=== PATIENT | female | born 1955 | race Caucasian/White ===

== ENCOUNTER 2020-05-27 07:28 | Day surgery (SDC) | payer OTHER ==
--- NOTE | 2020-05-24 10:17 | EKG ---
Test Date: 2020-05-24 Test Time: 10:08:57 [employer] Systems Foreman: CHRISTINA MEASUREMENT RESULTS: Intervals: Rate: 60 WV: 132 QRSD: 76 QT: 428 QTc: 428 Spray: P: 35 WV: 132 QRS: 56 T: 76 INTERPRETIVE STATEMENTS: Normal sinus rhythm Normal ECG Compared to ECG 05/17/2015 09:05:43 No significant changes Electronically Signed On 05-24-20 10:16:24 OPERATIONS MGR by Isaak Soria
--- NOTE | 2020-05-24 10:21 | RAD REPORT ---
EXAM DESCRIPTION: Jalen Medellin (2 Views)05/24/2020 10:07 am CLINICAL HISTORY: Preop for colonoscopy COMPARISON: 2014 FINDINGS: The lungs appear clear of acute infiltrate. The heart is normal size IMPRESSION: No acute abnormalities displayed
[2020-05-24 11:28] LABS: Absolute Lymphocytes (CBC) 0.8 K/uL (0.7-4.9); Basophils % 0.5 % (0-1.3); Hematocrit 39.2 % (36.0-45.0); MPV 9.9 fL (7.6-11.3); RBC Red Blood Cell Count 4.62 M/uL (3.86-4.86)
[2020-05-24 11:37] LABS: Potassium 3.6 mmol/L (3.5-5.1)
--- OUTSIDE RECORDS SUMMARY | 2020-05-27 07:32 | XMS REPORT | Continuity of Care Document ---
:1955 Author Organization [employer] Care Team Providers Name Role Phone [employer] Unavailable Un available Problems Problem Status Onset Classification Date Comments Sourc e Date Reported Encounter for 11/17/2018 OP ID screening mammogram 018 [place] for malignant neoplasm of breast Z12.31 - ENCNTR SCREEN Active OPID MAMMOGRAM FOR [place] 015 [place] Carpal tunnel syndrome Active Problem 06/28/2019 Data Mischer (disorder) 014 migrated Neuro,MH from [facility] on 11/20/14. Eczema (disorder) Active Problem 06/28/2019 Data M ischer 014 migrated Neuro,MH from [facility] on 11/20/14. NEED FOR PROPHYLACTIC Active Condition 05/24/2014 MH VACCINATION AND 014 Medi nataliia INOCULATION AGAINST Group INFLUENZA ECZEMA Active Condition 05/24/2014 MH 014 Medical Group CARPAL TUNNEL SYNDROME Active Condition 05/24/2014 MH 014 Medical Group Migraine (disorder) Active Problem 06/28/2019 Data Mischer 014 migrated Neuro,MH from [facility] on 11/20/14. MIGRAINE HEADACHE Active Condition 05/24/2014 M H 014 Medical Group Depressive disorder Active Problem 06/28/2019 Data Mischer (disorder) 013 [facility]14. Hyperlipidemia Active Problem 06/28/2019 Data Misc her (disorder) 013 migrated Neuro[facility] on 11/20/14. Monoclonal gammopathy Active Problem 06/28/2019 Data Mischer (disorder) 013 migrated Neuro,MH from [facility] on 11/20/14. Obesity (disorder) Active Problem 06/28/2019 Data Mischer 013 migrated Neuro, from [facility] on 11/20/14. MONOCLONAL GAMMOPATHY Active Condition 05/24/2014 013 Medical Group OBESITY Active Condition 05/24/2014 013 Medical Group DEPRESSION Active Condition 05/24/2014 013 Medical Group ELEVATED BLOOD Inactive Condition 05/24/2014 PRESSURE 013 Medical Group HYPERLIPIDEMIA Active Condition 05/24/2014 013 Medical Group 238.3 - [facility] CHEPE Active OPID B 012 [place] Allergic rhinitis Active Problem 06/28/2019 Data M ischer (disorder) migrated Neuro, from [facility] on 11/20/14. Asthma (disorder) Active Problem 06/28/2019 Data M ischer migrated Neuro, from [facility] on 11/20/14. Hypothyroidism Active Problem 06/28/2019 Data Misc her (disorder) [facility] on 11/20/14. Cervico-occipital Active Problem 06/28/2019 M ischer neuralgia (finding) Neuro,[facility] [address] Disease of thyroid Resolved Problem 06/28/2019 Mischer gland (disorder) [facility] Resolved Problem 06/28/2019 Mischer Neuro,[facility] [address] Hypercholesterolemia Resolved Problem 06/28/2019 Mischer (disorder) Neuro,[facility] [address] HYPOTHYROIDISM Active Condition 05/24/2014 Medical Group ALLERGIC RHINITIS Active Condition 05/24/2014 M H Medical Group ASTHMA Active Condition 05/24/2014 Medical Group Medications Medication Details Route Status Patient Ordering Order Source Instructions Provider Date Acetaminophen 1 tab, PO, Active Mischer 300 MG / Q4H, 0 018 Neuro butalbital 50 MG Refill(s) Oral Tablet Levothyroxine 88 microgram Active Misch er Sodium 0.088 MG = 1 tab, PO, 018 Khalida ro Oral Tablet Daily, 0 [Synthroid] Refill(s) rosuvastatin 20 20 mg = 1 Active Mische r mg oral tablet tab, PO, 018 Neuro Bedtime, 0 Refill(s) PHENTERMINE HCL Take 1/2 - 1 Active MH 37.5 MG CAPS capsule by 014 Medical mouth in the Group morning PRAVASTATIN 1 pill daily Active MH SODIUM 40 MG 014 Medical TABS Group PHENTERMINE HCL 1/2 - 1 Active MH 37.5 MG TABS tablet daily 014 Medica l Group PHENTERMINE HCL 1/2 - 1 Active MH 37.5 MG TABS tablet daily 014 Medica l Group ASPIRIN 81MG No Longer MH Active 014 Medical Group LEVOTHROID 75 1 tab po qd Active MH MCG TABS 014 Medical Group CAMBIA 50 MG Take w/ 1 oz Active MH PACK water at 014 Medical onset of Group headache. SUMATRIPTAN 1 pill at No Longer MH SUCCINATE 100 MG onset of BERGERON; Active 014 Me dical TABS may repeat Group in 2 hours; max 2 pills per day PHENTERMINE HCL 1 po qd Active MH 15 MG CAPS 014 Medical Group CAMBIA 50 MG Take w/ 1 oz Active MH PACK water at 014 Medical onset of Group headache. SUMATRIPTAN 1 pill at No Longer MH SUCCINATE 100 MG onset of BERGERON; Active 014 Me dical TABS may repeat Group in 2 hours; max 2 pills per day PRAVASTATIN 1 po QD Active MH SODIUM 40 MG 013 Medical TABS Group ADVAIR DISKUS 1 puff BID Active MH 100-50 MCG/DOSE prn wheezing 013 Med ical AEPB Group PROAIR HFA 108 2 puffs QID No Longer MH (90 BASE) prn wheezing Active 013 Medical MCG/ACT AERS Group VENLAFAXINE HCL 1 po QD Active MH ER 37.5 MG 013 Medical [id number] Group XANAX 0.25 MG 1 po qhs prn No Longer MH TABS Active 013 Medical Group ADVAIR DISKUS 1 puff BID Active MH 100-50 MCG/DOSE prn wheezing 013 Med ical AEPB Group VENLAFAXINE HCL 1 po QD Active MH ER 37.5 MG 013 Medical [id number] Group PROAIR HFA 108 2 puffs QID No Longer MH (90 BASE) prn wheezing Active 013 Medical MCG/ACT AERS Group ADVAIR DISKUS 1 puff BID Active MH 100-50 MCG/DOSE prn wheezing 013 Med ical AEPB Group PROAIR HFA 108 2 puffs QID No Longer MH (90 BASE) prn wheezing Active 013 Medical MCG/ACT AERS Group VENLAFAXINE HCL 1 po QD Active MH ER 37.5 MG 013 Medical [id number] Group ADVAIR DISKUS 1 puff BID Active MH 100-50 MCG/DOSE prn wheezing 013 Med ical AEPB Group LEVOTHROID 75 1 tab po qd Active MCG TABS Medical Group CVS FISH OIL 1 cap po qd Active 1000 MG CAPS Medical Group VITAMIN D3 Active 2400MG Medical Group FLAXSEED OIL Active 1000MG Medical Group ASPIRIN 81MG 1 PO QD Active Medical Group B12 2500MG Active Medical Group XYZAL 5 MG TABS Active Medical Group B3 2000 Active Medical Group VENTOLIN HFA 108 2 puffs qid Active (90 BASE) prn wheezing Medical MCG/ACT AERS Group VENTOLIN HFA 108 2 puffs qid Active (90 BASE) prn wheezing Medical MCG/ACT AERS Group VENLAFAXINE HCL 1 po QD prn Active ER 37.5 MG Medical [id number] Group ZYRTEC ALLERGY 5 1 pill daily Active MH MG CHEW Medical (CETIRIZINE HCL) Group Allergies, Adverse Reactions, Alerts Substance Category Reaction Severity Reaction Status Date Comments S ource type Reported No Known Assertion Drug OP ID Medication allergy Tova and Allergies Immunizations Immunization Date Site Status Last Comments Source Given Updated diphtheria/pertu Left completed Malcolm Result Commen t: [facility] [id number] Julia ssis, [address] Malena Shields acel/tetanus site prior to inj ection: clean OPID adult<sup>1</sup site prepped with alcohol pad [place] > site after injection : no redness or swelling VIS printed and carrie ent consented pneumococcal completed Malcolm Dumont 23-valent 6 Neuro, vaccine OPID [place] influenza virus completed [place] Result Comment : Mischer vaccine, 6 [09/28/2016 Neuro,MH inactivated<sup> Uncharted] OP ID 3</sup> error [place] influenza completed Medical immunization 4 Group (Flu Vax) has been administered Hx influenza Left completed GE Result Comment: M H OPID vaccine-unspecif 4 Deltoid fluzone [place] ied<sup>2</sup> (quadrivalent) no preservative (>3 yrs.) [[id number]]. Migrated from OBS ; Data migrated from [facility] [place] on 07/26/2015. Hx influenza Left completed GE Result Comment: M ischer vaccine-unspecif 4 Deltoid fluzone Khalida ro,MH ied<sup>4</sup> (quadrivalent) OPID no preservative [place] (>3 yrs.) [[id number]]. Migrated from OBS ; Data migrated from [facility] [place] on 07/26/2015. influenza completed Medical immunization 3 Group (Flu Vax) has been administered pneumococcal completed GE Result Comment: M H OPID 23-valent 2 given. Migrated [place] vaccine<sup>4</s from OBS ; up> Data migrated from [facility] on 07/26/2015. pneumococcal completed GE Result Comment: M ischer 23-valent 2 given. Migrated Neur o,MH vaccine<sup>2</s from OBS ; OPID up> Data migrated [place] from [facility] on 07/26/2015. pneumococcal completed Medi nataliia immunization 2 Group administered Results Order Name Results Value Reference Date Interpretation Comments Kecia rce Range Chemistry TSH 1.790 0.360 - 01/19/ MH 3.740 2013 Medical Group Chemistry CHOLESTEROL 196 - 199 2013 Medical Group Chemistry TRIGLYCERIDE 152 - 149 2013 Medical Group Chemistry HDL 53 >=61 2013 Medical Group Chemistry SODIUM 143 135 - 145 MEQ/L 2013 Medical Group Chemistry POTASSIUM 4.7 3.5 - 5.1 MEQ/L 2013 Medical Group Chemistry CREATININE 0.9 0.5 - 1.4 2013 Medical Group Chemistry BUN 20 7 - 22 2013 Medical Group Chemistry BUN/CREAT 22 6 - 25 2013 Medical Group Chemistry ALBUMIN 3.8 3.5 - 5.0 2013 Medical Group Chemistry CALCIUM 9.0 8.5 - 10.5 2013 Medical Group Chemistry SGPT (ALT) 21 0 - 65 2013 Medical Group Chemistry SGOT (AST) 10 0 - 37 2013 Medical Group Chemistry ALK PHOS 71 39 - 136 2013 Medical Group Chemistry TSH 1.790 0.360 - 3.740 2013 Medical Group Chemistry CHOLESTEROL 196 - 199 2013 Medical Group Chemistry TRIGLYCERIDE 152 - 149 2013 Medical Group Chemistry HDL 53 >=61 2013 Medical Group Chemistry LDL 113 - 99 2013 Medical Group Chemistry SODIUM 143 135 - 145 MEQ/L 2013 Medical Group Chemistry POTASSIUM 4.7 3.5 - 5.1 MEQ/L 2013 Medical Group Chemistry CREATININE 0.9 0.5 - 1.4 2013 Medical Group Chemistry BUN 20 7 - 22 2013 Medical Group Chemistry BUN/CREAT 22 6 - 25 2013 Medical Group Chemistry ALBUMIN 3.8 3.5 - 5.0 2013 Medical Group Chemistry CALCIUM 9.0 8.5 - 10.5 2013 Medical Group Chemistry SGPT (ALT) 21 0 - 65 2013 Medical Group Chemistry SGOT (AST) 10 0 - 37 2013 Medical Group Chemistry ALK PHOS 71 39 - 136 2013 Medical Group Chemistry TSH 1.790 0.360 - 3.740 2013 Medical Group Chemistry CHOLESTEROL 196 - 199 2013 Medical Group Chemistry TRIGLYCERIDE 152 - 149 2013 Medical Group Chemistry HDL 53 >=61 2013 Medical Group Chemistry LDL 113 - 99 2013 Medical Group Chemistry SODIUM 143 135 - 145 MEQ/L 2013 Medical Group Chemistry POTASSIUM 4.7 3.5 - 5.1 MEQ/L 2013 Medical Group Chemistry CREATININE 0.9 0.5 - 1.4 2013 Medical Group Chemistry BUN 20 7 - 22 2013 Medical Group Chemistry BUN/CREAT 22 6 - 25 2013 Medical Group Chemistry ALBUMIN 3.8 3.5 - 5.0 2013 Medical Group Chemistry CALCIUM 9.0 8.5 - 10.5 2013 Medical Group Chemistry SGPT (ALT) 21 0 - 65 2013 Medical Group Chemistry SGOT (AST) 10 0 - 37 2013 Medical Group Chemistry ALK PHOS 71 39 - 136 2013 Medical Group Chemistry TSH 3.810 0.360 - 3.740 2013 Medical Group Chemistry CHOLESTEROL 225 - 199 2013 Medical Group Chemistry TRIGLYCERIDE 159 - 149 2013 Medical Group Chemistry HDL 53 >=61 2013 Medical Group Chemistry SODIUM 140 135 - 145 MEQ/L 2013 Medical Group Chemistry POTASSIUM 4.0 3.5 - 5.1 MEQ/L 2013 Medical Group Chemistry CREATININE 0.9 0.5 - 1.4 2013 Medical Group Chemistry BUN 19 7 - 22 2013 Medical Group Chemistry BUN/CREAT 21 6 - 25 2013 Medical Group Chemistry ALBUMIN 4.0 3.5 - 5.0 2013 Medical Group Chemistry CALCIUM 8.6 8.5 - 10.5 2013 Medical Group Chemistry SGPT (ALT) 29 0 - 65 2013 Medical Group Chemistry SGOT (AST) 17 0 - 37 2013 Medical Group Chemistry ALK PHOS 81 39 - 136 2013 Medical Group Chemistry TSH 3.810 0.360 - 3.740 2013 Medical Group Chemistry CHOLESTEROL 225 - 199 2013 Medical Group Chemistry TRIGLYCERIDE 159 - 149 2013 Medical Group Chemistry HDL 53 >=61 2013 Medical Group Chemistry SODIUM 140 135 - 145 MEQ/L 2013 Medical Group Chemistry POTASSIUM 4.0 3.5 - 5.1 MEQ/L 2013 Medical Group Chemistry CREATININE 0.9 0.5 - 1.4 2013 Medical Group Chemistry BUN 19 7 - 22 2013 Medical Group Chemistry BUN/CREAT 21 6 - 25 2013 Medical Group Chemistry ALBUMIN 4.0 3.5 - 5.0 2013 Medical Group Chemistry CALCIUM 8.6 8.5 - 10.5 2013 Medical Group Chemistry SGPT (ALT) 29 0 - 65 2013 Medical Group Chemistry SGOT (AST) 17 0 - 37 2013 Medical Group Chemistry ALK PHOS 81 39 - 136 2013 Medical Group Chemistry TSH 3.810 0.360 - 3.740 2013 Medical Group Chemistry CHOLESTEROL 225 - 199 2013 Medical Group Chemistry TRIGLYCERIDE 159 - 149 2013 Medical Group Chemistry HDL 53 >=61 2013 Medical Group Chemistry LDL 140 - 99 2013 Medical Group Chemistry SODIUM 140 135 - 145 MEQ/L 2013 Medical Group Chemistry POTASSIUM 4.0 3.5 - 5.1 MEQ/L 2013 Medical Group Chemistry CREATININE 0.9 0.5 - 1.4 2013 Medical Group Chemistry BUN 19 7 - 22 2013 Medical Group Chemistry BUN/CREAT 21 6 - 25 2013 Medical Group Chemistry ALBUMIN 4.0 3.5 - 5.0 2013 Medical Group Chemistry CALCIUM 8.6 8.5 - 10.5 2013 Medical Group Chemistry SGPT (ALT) 29 0 - 65 2013 Medical Group Chemistry SGOT (AST) 17 0 - 37 2013 Medical Group Chemistry ALK PHOS 81 39 - 136 2013 Medical Group Chemistry TSH 3.810 0.360 - 3.740 2013 Medical Group Chemistry CHOLESTEROL 225 - 199 2013 Medical Group Chemistry TRIGLYCERIDE 159 - 149 2013 Medical Group Chemistry HDL 53 >=61 2013 Medical Group Chemistry LDL 140 - 99 2013 Medical Group Chemistry SODIUM 140 135 - 145 MEQ/L 2013 Medical Group Chemistry POTASSIUM 4.0 3.5 - 5.1 MEQ/L 2013 Medical Group Chemistry CREATININE 0.9 0.5 - 1.4 2013 Medical Group Chemistry BUN 19 7 - 22 2013 Medical Group Chemistry BUN/CREAT 21 6 - 25 2013 Medical Group Chemistry ALBUMIN 4.0 3.5 - 5.0 2013 Medical Group Chemistry CALCIUM 8.6 8.5 - 10.5 2013 Medical Group Chemistry SGPT (ALT) 29 0 - 65 2013 Medical Group Chemistry SGOT (AST) 17 0 - 37 2013 Medical Group Chemistry ALK PHOS 81 39 - 136 2013 Medical Group Hematology HGB 14.0 12.0 - 16.0 2013 Medical Group Hematology HCT 41.6 36.0 - 48.0 2013 Medical Group Hematology PLATELETS 177 133 - 450 [facility] 2013 Medical Group Hematology HGB 14.0 12.0 - 16.0 2013 Medical Group Hematology HCT 41.6 36.0 - 48.0 2013 Medical Group Hematology PLATELETS 177 133 - 450 [facility] 2013 Medical Group Hematology HGB 14.0 12.0 - 16.0 2013 Medical Group Hematology HCT 41.6 36.0 - 48.0 2013 Medical Group Hematology PLATELETS 177 133 - 450 [facility] 2013 Medical Group Chemistry CHOLESTEROL 237 - 199 2012 Medical Group Chemistry TRIGLYCERIDE 189 - 149 2012 Medical Group Chemistry HDL 49 >=61 2012 Medical Group Chemistry LDL 150 - 99 2012 Medical Group Chemistry SODIUM 139 135 - 145 MEQ/L 2012 Medical Group Chemistry POTASSIUM 4.3 3.5 - 5.1 MEQ/L 2012 Medical Group Chemistry CREATININE 0.9 0.5 - 1.4 2012 Medical Group Chemistry BUN 20 7 - 22 2012 Medical Group Chemistry BUN/CREAT 22 6 - 25 2012 Medical Group Chemistry ALBUMIN 3.8 3.5 - 5.0 2012 Medical Group Chemistry CALCIUM 8.6 8.5 - 10.5 2012 Medical Group Chemistry SGPT (ALT) 35 0 - 65 2012 Medical Group Chemistry SGOT (AST) 16 0 - 37 2012 Medical Group Chemistry ALK PHOS 80 39 - 136 2012 Medical Group Chemistry T4, FREE 0.95 0.76 - 1.46 2012 Medical Group Chemistry TSH 2.420 0.360 - 3.740 2012 Medical Group Chemistry CHOLESTEROL 237 - 199 2012 [facility] Chemistry TRIGLYCERIDE 189 - 149 2012 Medical Group Chemistry HDL 49 >=61 2012 Medical Group Chemistry LDL 150 - 99 2012 Medical Group Chemistry SODIUM 139 135 - 145 MEQ/L 2012 Medical Group Chemistry POTASSIUM 4.3 3.5 - 5.1 MEQ/L 2012 Medical Group Chemistry CREATININE 0.9 0.5 - 1.4 2012 Medical Group Chemistry BUN 20 7 - 22 2012 Medical Group Chemistry BUN/CREAT 22 6 - 25 2012 Medical Group Chemistry ALBUMIN 3.8 3.5 - 5.0 2012 Medical Group Chemistry CALCIUM 8.6 8.5 - 10.5 2012 Medical Group Chemistry SGPT (ALT) 35 0 - 65 2012 [facility] Group Chemistry SGOT (AST) 16 0 - 37 2012 [facility] Chemistry ALK PHOS 80 39 - 136 2012 [facility] Group Chemistry T4, FREE 0.95 0.76 - 1.46 2012 Medical Group Chemistry TSH 2.420 0.360 - 3.740 2012 [facility] Chemistry CHOLESTEROL 237 - 199 2012 [facility] Chemistry TRIGLYCERIDE 189 - 149 2012 [facility] Chemistry HDL 49 >=61 2012 [facility] Chemistry LDL 150 - 99 2012 [facility] Chemistry SODIUM 139 135 - 145 MEQ/L 2012 Medical Group Chemistry POTASSIUM 4.3 3.5 - 5.1 MEQ/L 2012 Medical Group Chemistry CREATININE 0.9 0.5 - 1.4 2012 Medical Group Chemistry BUN 20 7 - 22 2012 Medical [facility] Chemistry BUN/CREAT 22 6 - 25 2012 Medical [facility] Chemistry ALBUMIN 3.8 3.5 - 5.0 2012 Medical [facility] Chemistry CALCIUM 8.6 8.5 - 10.5 2012 Medical [facility] Chemistry SGPT (ALT) 35 0 - 65 2012 Medical [facility] Chemistry SGOT (AST) 16 0 - 37 2012 Medical [facility] Chemistry ALK PHOS 80 39 - 136 2012 Medical [facility] Chemistry T4, FREE 0.95 0.76 - 1.46 2012 [facility] Chemistry TSH 2.420 0.360 - 3.740 2012 [facility] Hematology HGB 13.5 12.0 - 16.0 2012 [facility] Hematology HCT 40.9 36.0 - 48.0 2012 [facility] Hematology PLATELETS 166 133 - 450 K/CMM 2012 [facility] Hematology HGB 13.5 12.0 - 16.0 2012 Medical [facility] Hematology HCT 40.9 36.0 - 48.0 2012 Medical [facility] Hematology PLATELETS 166 133 - 450 K/CMM [address] [facility] Lead Android Developer PAP SMEAR Normal 2012 Medical Group Lead Android Developer PAP SMEAR Normal 2012 Medical [facility] Lead Android Developer PAP SMEAR Normal 2012 [facility] Pathology PAP SMEAR Normal 2012 Medical [facility] Pathology Reports No Data Provided for This Section Diagnostic Reports Report Value Date Source Breast Mammo Scrn PRICE 06/26/2019 OPID [place] w bryson incl CAD MA BILATERAL DIGITAL SCREENING MAMMOGRAM 3D/2D WITH CAD: 06/26/2019 CLINICAL: /Routine. Current study was evaluated with a Judicial Clerk d Detection (CAD) system. COMPARISON:Comparison is mad e to exams dated: 04/29/2018 mammogram, 04/15/2017 mammogram, 03/09/2017 mammogram, 04/25/2015 mammogram, 09/08/2013 mammogram, and 02/19/2012 mammogram - [facility]. TECHNIQUE: Digital Breast To mosynthesis was performed and utilized for Interpretation. Current study was also evaluated with a Computer Aided Detection (CAD) system. FINDINGS: There are scattered fibroglandular densities in both breasts. There are benign intramammar y nodes in the right breast. There also are benign calcifications and intramammary nodes in the left breast. Additionally, there are post operative findings in the right breast. No significant masses, calci fications, or other findings are seen in either breast. There has been no significant interval change. IMPRESSION: BENIGN RECOMMENDATION:There is no m ammographic evidence of malignancy. A 1 year screening mammogram is recommended.(06/26/2020) This exam was interpreted at [id number] for Fina. Professional services are pr ovided by the [facility] [employer] [facility] of Diagnostic Imaging. Laury Lovell M.D., ms/dianarad:06/29/2019 09:26:03 Steam Table Worker(s): RT Milagro(R)(M), [facility] letter sent: BI-RADS 1/2 Mammogram BI-RADS: 2 Benign Breast Mammo Scrn PRICE 04/29/2018 DEZD [place] w bryson incl CAD MA BILATERAL DIGITAL SCREENING MAMMOGRAM 3D/2D WITH CAD: 04/29/2018 CLINICAL: /Routine. Current study was evaluated with a Judicial Clerk d Detection (CAD) system. COMPARISON:Comparison is mad e to exams dated: 04/15/2017 mammogram, 03/09/2017 mammogram, 04/25/2015 mammogram, 09/08/2013 mammogram, and 02/19/2012 mammogram - [facility]. TECHNIQUE: Digital Breast To mosynthesis was performed and utilized for Interpretation. Current study was also evaluated with a Computer Aided Detection (CAD) system. FINDINGS: There are scattered fibroglandular densities in both breasts. There is a benign intramamma ry node in the right breast. There also is a benign appearing intramammary node in the left breast. Additionally, there are benign appearing calcifications in the left [address]. Additionally, there also are post o perative findings in the right breast. No significant masses, calci fications, or other findings are seen in either breast. There has been no significant interval change. IMPRESSION: BENIGN RECOMMENDATION:There is no m ammographic evidence of malignancy. A 1 year screening mammogram is recommended.(04/30/2019) This exam was interpreted at [id number] for JOHAN Brooks 15. Professional services are pr ovided by the [facility] of Diagnostic Imaging. Laury Lovell M.D. ms/penrad:04/29/2018 14:15:25 Steam Table Worker(s): Steffany [facility] letter sent: BI-RADS 1/2 Mammogram BI-RADS: 2 Benign Breast Complete Uni US 04/15/2017 LUIS CARLOS MARTINEZ P [place] COMPLETE ULTRASOUND OF LEFT BREAST AND AXILLA: 1 CLINICAL: Abn Mammo/Abn Mammo. COMPARISON:Comparison is mad e to exams dated: 04/15/2017 mammogram and 03/09/2017 mammogram - [facility]. TECHNIQUE: Ultrasound of the left breast four quadrants and axilla regions was performed. FINDINGS: There is a benign 0.8 cm x 0.7 cm x 0.3 cm cluster of cysts in the left breast at 8 o'clock posterior depth 6 cm from the nipple. This correlates with mammography findings. Color fl ow imaging demonstrates that there is no vascula rity present. No abnormalities were seen sonographically in th e left axilla. IMPRESSION: BENIGN RECOMMENDATION:There is no sonographic evidence of malignancy. The 0.8 cm x 0.7 cm x 0.3 cm cluster of cysts in the left breast is benign. Return to annual mammogram s creening schedule is recommended.(03/09/2018) This exam was interpreted at [id number] for JOHAN Brooks 15. Laury Lovell M.D. ms/penrad:04/15/2017 15:46:53 Steam Table Worker(s): Albino Putnam [facility] [place] letter sent: BI-RADS 1/2 Ultrasound BI-RADS: 2 Benign Breast Mammo Diag UNI 04/15/2017 LUIS CARLOS MARTINEZ [place] w bryson incl CAD MA UNILATERAL LEFT DIGITAL DIAGNOSTIC MAMMOGRAM 3D/ 2D WITH CAD: 04/15/2017 CLINICAL: Abnormal Mammogram/R92.8. Current study was evaluated with a Judicial Clerk d Detection (CAD) system. COMPARISON:Comparison is mad e to exams dated: 03/09/2017 mammogram, 04/25/2015 mammogram, 09/08/2013 mammogram, 02/19/2012 mammogram, 01/11/2011 mammogram, and 07/19/2009 mammogram - [facility]. TECHNIQUE: Digital Breast To mosynthesis was performed and utilized for Interpretation. Current study was also evaluated with a Computer Aided Detection (CAD) system. There are scattered fibroglandular densities in left breast. FINDINGS: There are benign appearing calcifications in the left breast. There is 0.7 cm oval mass wi th a circumscribed margin in the left breast at 8 o'clock middle depth 7.5 cm from the nipple. No other significant masses or calcifications ar e seen in the breast. IMPRESSION: INCOMPLETE: NEEDS ADDITIONAL IMAGING EVALUATION RECOMMENDATION:The 0.7 cm ov al mass in the left breast is indeterminate. An ultrasound is recommended. This exam was interpreted at [id number] for LUIS CARLOS smith, JOHAN 15. Laury Lovell M.D. ms/penrad:04/15/2017 15:43:39 Steam Table Worker(s): Idalia Richard [place] letter sent: BI-RADS 0 Mammogram BI-RADS: 0 Indeterminate Breast Mammo Scrn PRICE - BREAST MAMMO SCRN PRICE W BRYSON INCL CAD MA 03/09/2017 JUAN Harden w bryson incl CAD MA BILATERAL DIGITAL SCREENING MAMMOGRAM 3D/2D WITH CAD: 03/09/2017 CLINICAL: Routine/Z12.31. 2D digital mammographic imag es and 3D digital tomosynthesis images were obtained in the CC and MLO projections. Current study was evaluated with a Judicial Clerk d Detection (CAD) system. Comparison is made to exams dated: 04/25/2015 mammogram, 09/08/2013 mammogram, 02/19/2012 mammogram, 01/11/2011 mammogram and 07/19/2009 mammogram - [facility]. There are scattered fibroglandular densities in both breasts. Postoperative changes in the left breast and small bilateral oval masses are stable. There is an asymmetry in the left breast middle depth medial region seen on the craniocaudal view only 9 cm from the nipple. This is best seen on tomosynthesis slice 26/88, and appears to be in the inferior breast. No other significant masses, calcifications, or other findings are seen in either breast. IMPRESSION: INCOMPLETE: NEEDS ADDITIONAL IMAGING EVALUATION The asymmetry in the left br east is indeterminate. Additional views with possible ultrasound are recommended. Tomoynthesis would be helpful at time of further evaluation. Professional services are pr ovided by the [facility] Diagnostic [facility]. Raymond Perea M.D. cm/penrad:03/11/2017 09:18:07 Steam Table Worker: [facility] This exam was dictated and interpreted by [id number] for JOHAN Brooks. letter sent: Additional Imaging Mammogram BI-RADS: 0 Indeterminate Digital Mammo - DIGITAL MAMMO SCREENING PRICE MA 04/25/2015 [facility] [place] [facility] MA BILATERAL DIGITAL SCREENING MAMMOGRAM WITH CAD: 04/25/2015 CLINICAL: Z12.31 Encounter For Screening Mammogram For Malignant Neoplasm Of Breast. Current study was evaluated with a Judicial Clerk d Detection (CAD) system. Comparison is made to exams dated: 09/08/2013 mammogram, 02/19/2012 mammogram, 01/11/2011 mammogram, 07/19/2009 mammogram, 12/30/2008 mammogram and 06/14/2008 mammogram - [facility]. There are scattered fibroglandular densities in both breasts. There are benign lymph nodes in both breasts. There also are benign calcifications in the left breast. Additionally there are post operative findings in the right breast. No significant masses, calci fications, or other findings are seen in either breast. There has been no significant interval change. IMPRESSION: BENIGN There is no mammographic pam dence of malignancy. A 1 year screening mammogram is recommended. Laury Lovell M.D. ms/penrad:04/26/2015 15:13:02 Steam Table Worker: Maame COLES(R)(Alexandr), [facility] This exam was dictated and interpreted by [id number] for JOHAN Brooks. letter sent: Normal exam Mammogram BI-RADS: 2 Benign Digital Mammo - DIGITAL MAMMO SCREENING PRICE MA 09/08/2013 [facility] [place] Scre[facility] MA BILATERAL DIGITAL SCREENING MAMMOGRAM WITH CAD: 09/08/2013 CLINICAL: Annual Exam. Current study was evaluated with a Judicial Clerk d Detection (CAD) system. Comparison is made to exams dated: 02/19/2012 mammogram, 01/11/2011 mammogram, 07/19/2009 mammogram, 12/30/2008 mammogram and 06/14/2008 mammogram - [facility]. There are scattered fibroglandular densities in both breasts. Patient complains of intermittent breast pain an d/or tenderness. There are benign lymph nodes in both breasts. There also is a benign density in the right breast. Additionally there are benign calcifications in the left breast. There also are post operative findings in the right breast. No significant masses, calci fications, or other findings are seen in either breast. There has been no significant interval change. IMPRESSION: BENIGN Clinical management of the patient's breast comp laints is recommended. There is no mammographic pam dence of malignancy. A screening mammogram in one year is recommended. Ro mcdowell/shawn:09/11/2013 08:58:00 Steam Table Worker: Audra COLES(R)(M), [facility] This exam was dictated and interpreted by [id number] for JOHAN Brooks 15. letter sent: Normal exam Mammogram BI-RADS: 2 Benign Consultation Notes No Data Provided for This Section Discharge Summaries No Data Provided for This Section History and Physicals No Data Provided for This Section Vital Signs Vital Sign Value Date Comments Source Systolic (mm Hg) 152 06/13/2018 [facility] Diastolic (mm Hg) 84 06/13/2018 [facility] Heart Rate 62 06/13/2018 [facility] Weight 91.08 06/13/2018 [facility] Weight 89.148 05/02/2018 [facility] Heart Rate 70 05/02/2018 [facility] Systolic (mm Hg) 142 05/02/2018 [facility] Diastolic (mm Hg) 86 05/02/2018 [facility] BMI Calculated 31.22 03/20/2018 [facility] Weight 87.727 03/20/2018 [facility] Height 167.64 cm 03/20/2018 [facility] Heart Rate 68 03/20/2018 [facility] Systolic (mm Hg) 133 03/20/2018 [facility] Diastolic (mm Hg) 85 03/20/2018 [facility] Height 66.75 05/24/2014 [facility] Weight 173 05/24/2014 [facility] Temperature Oral (F) 98.1 F 05/24/2014 [facility] Systolic (mm Hg) 121 05/24/2014 [facility] Diastolic (mm Hg) 73 05/24/2014 [facility] Heart Rate 61 05/24/2014 [facility] Weight 175 01/19/2014 [facility] Temperature Oral (F) 97.8 F 01/19/2014 [facility] Systolic (mm Hg) 109 01/19/2014 [facility] Diastolic (mm Hg) 67 01/19/2014 [facility] Heart Rate 59 01/19/2014 [facility] Weight 175 10/02/2013 [facility] Temperature Oral (F) 97.9 F 10/02/2013 [facility] Systolic (mm Hg) 125 10/02/2013 [facility] Diastolic (mm Hg) 74 10/02/2013 [facility] Heart Rate 55 10/02/2013 [facility] Weight 182 07/31/2013 [facility] Temperature Oral (F) 98.2 F 07/31/2013 [facility] Systolic (mm Hg) 106 07/31/2013 [facility] Diastolic (mm Hg) 63 07/31/2013 [facility] Heart Rate 63 07/31/2013 [facility] Weight 185 07/03/2013 [facility] Temperature Oral (F) 98.6 F 07/03/2013 [facility] Systolic (mm Hg) 102 07/03/2013 [facility] Diastolic (mm Hg) 68 07/03/2013 [facility] Heart Rate 60 07/03/2013 [facility] Weight 181 03/02/2013 [facility] Temperature Oral (F) 98.5 F 03/02/2013 [facility] Systolic (mm Hg) 116 03/02/2013 [facility] Diastolic (mm Hg) 76 03/02/2013 [facility] Heart Rate 59 03/02/2013 [facility] Height 66.75 01/29/2013 [facility] Weight 189 01/29/2013 [facility] Temperature Oral (F) 97.3 F 01/29/2013 [facility] Respitory Rate 18 01/29/2013 [facility] Systolic (mm Hg) 151 01/29/2013 [facility] Diastolic (mm Hg) 88 01/29/2013 [facility] Heart Rate 66 01/29/2013 [facility] Encounters Location Location Encounter Encounter Reason Attending ADM DC Stat us Source Details Type Number For Provider Date Date Visit OD [id number] 238.3 - 02/18 Active MH [facility] Lab Report [id number] 03/22 MH [place] [address] Radha /2012 [facility] - [facility] Lab Report [id number] 07/03 [place] [address] Radha, /2013 [facility] Office [id number] 07/31 M H [facility] Visit 7040 Radha, /2013 [facility] Outpt Diag [id number] _MAPID: 09/08 [id number] [facility] [place] [facility] [id number] [address] Office [id number] Yaritza10/02 M H Gio Visit 5780 Radha, /2013 [facility] Lab Report [id number] 01/19 [place] 2940 Radha, /2013 [facility] [id number] 01/19 M H Gio Visit 5040 Radha, /2013 [facility] [id number] 05/24 M H Gio Visit 3960 Radha, /2013 [facility] [place] Out[facility] [id number] 01/24 [facility] [place] [facility] Outpt Diag [id number] Madai04/25 [facility] [place] /2014 [facility] [place] [facility] [id number] [facility] [place] [facility] [id number] [facility] [place] [facility] Out[facility] Di[facility] [id number] Madai03/09 [facility] [place] [facility] [id number] Madai04/15 [facility] [place] [facility] [place] Outpatient [id number] MANUEL 03/20 Active [facility] WISDOM JR [facility]NA Outpatient [id number] Manuel 03/20 03/21 [facility] Wisdom Jr /2017 Neur o [facility] Outpt Diag [id number] Madai04/29 [facility] [place] [facility] [place] Outpatient [id number] MANUEL 05/02 Active [facility] WISDOM JR [place] [facility] Outpatient [id number] Manuel 05/02 05/03 [facility] Wisdom Jr /2017 Neur o [facility] Outpatient [id number] MANUEL 06/13 Active [facility] [place] [facility] Phone [id number] 06/13 06/15 Mis her Neurology Message /2017 Neuro [facility] Outpatient [id number] Manuel 06/13 06/14 [facility] Wisdom Jr /2017 Neur o [facility] MNA Phone [id number] 08/29 08/31 M[facility] her Neurosurger Message /2018 Neur o [facility] Outpatient [id number] MANUEL 09/09 [facility] [place] Outpatient [id number] MANUEL 09/09 Active [facility] WISDOM JR [facility] Ambulatory [id number] Manuel 09/09 09/09 [facility] Pre-Reg Wisdom Jr /2018 Khalida ro [facility] MNA Ambulatory [id number] Manuel 09/09 09/09 [facility] Pre-Reg Wisdom Jr /2018 N euro y [facility] Outpt Diag [id number] Madai 06/26 06/27 [facility] Outpatient [facility] [place] /2019 [facility] [place] Procedures Procedure Code Date Perfomer Comments Source Injection, [id number] 03/20/2018 [facility] Neuro anesthetic agent; greater occipital nerve LASIK [id number] 09/23/2015 [facility] Neuro,[facility] [address] vaginal Pap smear 09922 06/24/2012 Normal Medi nataliia results Group mammogram 21500 01/23/2012 Normal Medical Bilateral Group Appendectomy [id number] [facility] [address] Colonoscopy [id number] [facility] [address] Cystectomy [id number] [facility] [address] Hysterectomy [id number] [facility] [address] Lumpectomy of [id number] [facility] breast Neuro,[facility] [address] Assessment and Plan No Data Provided for This Section Plan of Care No Data Provided for This Section Social History Social History Date Source Social History TypeResponse 03/20/2018 [facility] Substance Abuse Use: None. Alcohol Current, Type Wine. Frequency: 1-2 times per month. Previous treatment: None. Smoking Status Never smoker; Ready to change: No; Ruth rns about tobacco use in household: No; Exposure to Tobacco Smoke None; Cigarette Smoking Last 365 Days No; Reg Smoking Cessation Counseling No entered on: 06/13/18 Social History TypeResponse 03/20/2018 [facility] [place] Current, Type Wine. Frequency: 1-2 times per month. Previous treatment: None. Substance Abuse Use: None. Smoking Status Never smoker; Ready to change: No; Ruth rns about tobacco use in household: No; Exposure to Tobacco Smoke None; Cigarette Smoking Last 365 Days No; Reg Smoking Cessation Counseling No entered on: 06/13/18 Family History No Data Provided for This Section Advance Directives No Data Provided for This Section Functional Status No Data Provided for This Section
[2020-05-27] MEDS ORDERED: Ringers Lactate 1,000 ML IV ONE (08:00)
[2020-05-27] MEDS ORDERED: propofoL 200 MG/20 ML VIAL IV ONE (08:53)
[2020-05-27] MEDS ORDERED: LIDOCAINE 1% MPF 5 ML VIAL ONE (08:53)
--- NOTE | 2020-05-27 09:10 | ENDO RPT ---
[address], [address] COLONOSCOPY PROCEDURE REPORT EXAM DATE: 05/27/2020 PATIENT NAME: Lena Plunkett MR #: [id number] BIRTHDATE: 1955 ATTENDING: Tom Espinal M.D. STATUS: outpatient ADMIN SECRETARY: INDICATIONS: The patient is a 64 yr old Female here for a colonoscopy due to personal history of colon polyps PROCEDURE PERFORMED: Colonoscopy MEDICATIONS: Per Anesthesia. ESTIMATED BLOOD LOSS: None CONSENT: The patient understands the risks and benefits of the procedure and understands that these risks include, but are not limited to: sedation, allergic reaction, infection, perforation and/or bleeding. Alternative means of evaluation and treatment include, among others: physical exam, x-rays, and/or surgical intervention. The patient elects to proceed with this endoscopic procedure. DESCRIPTION OF PROCEDURE: During intra-op preparation period all mechanical medical equipment was checked for proper function. Hand hygiene and appropriate measures for infection prevention was taken. Procedure, possible complications, alternatives including, but not limited to possibility of bleeding, perforation, tear, infection, sepsis, need for surgery, need for blood transfusion, were explained to the patient. After the risks, benefits and alternatives of the procedure were thoroughly explained, Informed consent was verified, confirmed and timeout was successfully executed by the treatment team. The patient was placed in the left lateral position. A digital rectal exam was performed and revealed no abnormalities of the rectum. After appropriate level of anesthesia, the scope was passed. The EC-[id number] ([id number]) endoscope was introduced through the anus and advanced to the cecum, which was identified by the ileocecal valve. The quality of the prep was good. The instrument was then slowly withdrawn as the colon was fully examined. Scope withdrawal time was 11 minutes. COLON FINDINGS: Diverticula was found in the descending colon and sigmoid colon. Retroflexed views revealed no abnormalities. The scope was then completely withdrawn from the patient and the procedure terminated. ADVERSE EVENTS: There were no complications. IMPRESSIONS: Diverticula in the descending colon and sigmoid colon RECOMMENDATIONS: 1. fiber rich diet 2. no seeds in diet 3. increase dietary water 4. follow-up: office 1 week(s) RECALL: Return in 5 year(s) for Colonoscopy. Tom Espinal M.D. eSigned: Tom Espinal M.D. 05/27/2020 9:10 AM cc: Demario Eisenberg M.D. CPT CODES: ICD9 CODES: PATIENT NAME: Lena Plunkett MR#: [id number]
[2020-05-27 09:29] VITALS: TEMP 97.1
[2020-05-27 09:46] VITALS: BP 169/89; O2SAT 97
== END 2020-05-27 09:55 | disposition home health service (06) ==
LOC: OR 07:28
PROVIDERS: ATTEND Surgery
PROC: 0DJD8ZZ Inspection of Lower Intestinal Tract, Via Natural or Artificial Opening Endoscopic (ICD-10-PCS; principal; 2020-05-27 08:30)
DX: K57.30 Diverticulosis of large intestine without perforation or abscess without bleeding (principal); Z86.010 Personal history of colon polyps; Z20.828 Contact with and (suspected) exposure to other viral communicable diseases; J45.909 Unspecified asthma, uncomplicated; I10 Essential (primary) hypertension; E07.9 Disorder of thyroid, unspecified; C90.00 Multiple myeloma not having achieved remission; Z80.0 Family history of malignant neoplasm of digestive organs
CPT/HCPCS: 45378; 93005; 85025; 80048; 36415; 71046; U0002; J2704; J7120

== ENCOUNTER 2024-09-21 07:14 | Day surgery (SDC) | payer OTHER ==
[2024-09-18 14:52] LABS: Absolute Eosinophils 0.1 K/uL (0-0.5); Absolute Lymphocytes (CBC) 0.8 K/uL (0.7-4.9); Absolute Monocytes 0.3 K/uL (0.1-1.3); Absolute Neutrophil 2.7 K/uL (1.8-8.0); Basophils % 0.7 % (0-1.3); Eosinophils % 3.2 % (0-4.4); Hemoglobin 13.2 g/dL (12.0-15.0); Lymphocytes % 20.9 % (15.3-44.8); MCH 31.2 pg (27.0-35.0); MCHC 35.8 g/dL (32.0-36.0); MCV 87.1 fL (80-100); MPV 9.6 fL (7.6-11.3); Neutrophils % 67.2 % (41.7-73.7); Nucleated Red Blood Cells % 0.1 % (0-0); Platelets 183 thou/uL (152-406); RBC Red Blood Cell Count 4.25 M/uL (3.86-4.86); Red Cell Distribution Width 13.7 % (12.1-15.2)
--- NOTE | 2024-09-18 14:58 | RAD REPORT ---
EXAM: Chest Pa And Lat (2 Views) HISTORY: 68 years Female Pre-op pending colonoscopy COMPARISON: 05/24/2020 FINDINGS: LUNGS/PLEURA: The lungs are clear. No pleural effusions or pneumothorax. No pulmonary edema. CARDIAC/MEDIASTINUM: The cardiac silhouette is within normal limits. UPPER ABDOMEN: No significant abnormality. BONES: No acute abnormality. LINES/TUBES/OTHER: N/A IMPRESSION: No evidence of acute cardiopulmonary disease.
[2024-09-18 15:10] LABS: Anion Gap 7.8 mEq/L (5.0-15.0); Potassium 3.8 mEq/L (3.5-5.1)
[2024-09-21] MEDS: Ringers Lactate 1,000 ML IV ONE (07:40)
[2024-09-21] MEDS ORDERED: propofoL 200 MG/20 ML VIAL IV ONE ×2 (08:01)
[2024-09-21] MEDS ORDERED: LIDOCAINE 1% MPF 5 ML VIAL ONE (08:01)
[2024-09-21] MEDS ORDERED: GLYCOPYRROLATE 0.2 MG/ML SYR ONE (08:28)
[2024-09-21 09:16] VITALS: TEMP 97
[2024-09-21 09:17] VITALS: O2SAT 97
[2024-09-21 10:00] VITALS: BP 132/61
--- NOTE | 2024-09-21 11:28 | EKG ---
Test Date: 2024-09-18 Test Time: 14:35:44 Sterile Process Coordinator: MEASUREMENT RESULTS: Intervals: Rate: 56 MT: 134 QRSD: 78 QT: 416 QTc: 401 [place]ard: P: 40 MT: 134 QRS: 43 T: 72 INTERPRETIVE STATEMENTS: Sinus bradycardia Otherwise normal ECG Compared to ECG 05/24/2020 10:08:57 Sinus rhythm no longer present Electronically Signed On 09-21-24 11:22:05 CDT by Shemar Maria
== END 2024-09-21 09:50 | disposition home or self-care (01) ==
LOC: OR 07:14
PROVIDERS: ATTEND Surgery
PROC: 0DJD8ZZ Inspection of Lower Intestinal Tract, Via Natural or Artificial Opening Endoscopic (ICD-10-PCS; principal; 2024-09-21 08:30)
DX: Z12.11 Encounter for screening for malignant neoplasm of colon (principal); K57.30 Diverticulosis of large intestine without perforation or abscess without bleeding; K64.8 Other hemorrhoids; Z80.0 Family history of malignant neoplasm of digestive organs
CPT/HCPCS: 93005; 85025; 80048; 36415; 71046; J2704; J2003; J7120; G0121